=== PATIENT | female | born 1950 | race Two or more races ===

== ENCOUNTER 2018-02-08 16:54 | Emergency (ER) | payer OTHER ==
[~2018-02-08] VITALS: Ht 157.5 cm; Wt 86.2 kg
[2018-02-08] MEDS ORDERED: PAXIL30 MG (17:18)
[2018-02-08] MEDS ORDERED: WELLBUTRIN XL300 MG (17:19)
[2018-02-08] MEDS ORDERED: DALMANE30 MG (17:19)
== END 2018-02-08 18:22 | disposition home or self-care (01) ==
LOC: ER 16:54
DX: L60.0 Ingrowing nail (principal); L03.032 Cellulitis of left toe

== ENCOUNTER 2019-03-28 15:44 | Emergency (ER) | payer OTHER ==
[~2019-03-28] VITALS: Ht 160 cm; Wt 93.0 kg
[~2019-03-28 15:44] MED LIST: DALMANE30 MG; PAXIL30 MG; WELLBUTRIN XL300 MG
== END 2019-03-28 23:20 | disposition home or self-care (01) ==
LOC: ER 15:44
DX: K59.09 Other constipation (principal)

== ENCOUNTER → 2022-07-26 | Outpatient (CLI) | payer OTHER | END | disposition home or self-care (01) | LOC: TOM 08:28 | DX: K62.5 Hemorrhage of anus and rectum (principal); R19.4 Change in bowel habit ==

== ENCOUNTER 2024-12-28 07:00 | Inpatient (IN) | payer OTHER ==
[~2024-12-28] VITALS: Ht 157.5 cm; Wt 85.3 kg
[~2024-12-28 07:00] MED LIST changes: -PAXIL30 MG; +PAXIL30 MG PO
[2024-12-28] MEDS ORDERED: SEROQUEL300 MG PO (07:59)
[2024-12-28] MEDS ORDERED: SYNTHROID100 MCG PO (07:59)
[2024-12-28] MEDS ORDERED: LIPITOR40 MG PO (08:00)
[2024-12-28] MEDS ORDERED: BISOPROLOL-HCT1 EACH PO (08:00)
[2024-12-28] MEDS ORDERED: PROTONIX20 MG PO (08:00)
[2024-12-28 08:31] VITALS: BP 130/82
[2024-12-28 08:47] LABS: HEMATOCRIT 38.1 % (36.0-45.00); HEMOGLOBIN 12.6 g/dL (12.0-15.00); MEAN CELL VOLUME 93.5 fL (80.00-100.00); MEAN CORPUSCULAR HEMOGLOBIN 30.9 pg (27.00-32.0); PLATELET COUNT 355 K/uL (150-450); RED BLOOD COUNT 4.08 M/uL (4.00-6.00); RED CELL DISTRIBUTION WIDTH 14.3 % (11.5-14.5)
[2024-12-28 08:58] LABS: URINE APPEARANCE Clear; URINE BILIRRUBIN Negative (NEGATIVE); URINE BLOOD Negative; URINE COLOR Yellow; URINE GLUCOSE Negative (NEGATIVE); URINE KETONE Negative (NEGATIVE); URINE LEUKOCYTE Moderate; URINE NITRATE Negative; URINE PROTEIN Negative (NEGATIVE); URINE UROBILINOGEN 0.2 E.U./dl
[2024-12-28 09:03] LABS: URINE BACTERIA 140.7 uL (0.0-1933); URINE EPITHELIAL CELLS 20.5 uL (0.0-38.8); URINE WBC 220.7 uL (0.0-23.2)
[2024-12-28 09:11] LABS: URINE CAST 0.14 uL (0.0-1.40)
[2024-12-28 09:12] LABS: INR 0.99; PARTIAL THROMBOPLASTIN TIME 32.2 SECONDS (22.0-34.0); PROTHROMBIN TIME 10.8 SECONDS (9.0-11.5)
[2024-12-28 09:50] LABS: ALBUMIN 3.7 gm/dL (3.4-5.0); BILIRUBIN TOTAL 0.28 mg/dL (0.3-1.2); CALCIUM 9.3 mg/dL (8.5-10.1); CREATININE SERUM 1.25 mg/dL (0.55-1.02); GFR 42.01; GLOBULINA 3.5 G/DL (2.4-3.5); POTASSIUM 4.39 mEq/L (3.5-5.1); TOTAL PROTEIN 7.2 gm/dL (6.4-8.2)
[2025-01-05] MEDS ORDERED: KETOROLAC TROMETHAMINE 60 MG VIAL IM ONE (06:38)
[2025-01-05] MEDS ORDERED: CEFAZOLIN SODIUM 1,000 MG VIAL ONE (06:39)
[2025-01-05] MEDS ORDERED: TRANEXAMIC ACID 100MG/1ML (1000MG) AMPUL IV ONE (06:39)
[2025-01-05] MEDS ORDERED: VANCOMYCIN HCL 1,000 MG VIAL ONE (06:39)
[2025-01-05] MEDS ORDERED: MORPHINE SULFATE 4 MG/ML VIAL IV ONE (07:45)
[2025-01-05] MEDS ORDERED: OxyCODONE HCL/APAP UD (PERCOCET) PO PRN (09:15)
[2025-01-05] MEDS ORDERED: ONDANSETRON HCL 2 MG/ML VIAL IV PRN (09:15)
[2025-01-05 11:00] VITALS: BP 132/81
[2025-01-05] MEDS ORDERED: CEFAZOLIN SODIUM 1,000 MG VIAL IV SCH (12:00)
[2025-01-05] MEDS ORDERED: MORPHINE SULFATE 4 MG/ML CARTRIDGE IV SCH (12:00)
[2025-01-05 15:54] VITALS: BP 134/74
[2025-01-05 20:00] VITALS: BP 110/58
[2025-01-05] MEDS ORDERED: GABAPENTIN 100 MG CAPSULE PO SCH (21:00)
[2025-01-05] MEDS ORDERED: ORPHENADRINE CITRATE 100 MG TABLET PO SCH (21:00)
[2025-01-06 01:03] LABS: HEMATOCRIT 32.8 % (36.0-45.00); HEMOGLOBIN 11.5 g/dL (12.0-15.00); MEAN CORPUSCULAR HEMOGLOBIN 32.4 pg (27.00-32.0); MEAN CORPUSCULAR HGB CONC 35.2 g/dl (32.0-36.0); PLATELET COUNT 284 K/uL (150-450); RED BLOOD COUNT 3.56 M/uL (4.00-6.00); RED CELL DISTRIBUTION WIDTH 14.1 % (11.5-14.5)
[2025-01-06 01:33] VITALS: BP 136/65
[2025-01-06 08:42] VITALS: BP 114/50
[2025-01-06] MEDS ORDERED: RIVAROXABAN 10 MG TAB PO SCH (09:00)
[2025-01-06] MEDS ORDERED: BUPROPION HCL 150 MG TABLET.SA PO SCH (13:23)
[2025-01-06] MEDS ORDERED: SOD FERRIC GLUC COMPLX/SUCROSE 62.5 MG/5 ML AMPUL IV SCH (13:24)
[2025-01-06] MEDS ORDERED: Cyanocobalamin/Mecobalamin 1 TAB.SL SL SCH (13:24)
[2025-01-06 16:52] VITALS: BP 143/55
[2025-01-06] MEDS ORDERED: VITAMIN B COMPLEX 1 EACH PO SCH (17:00)
[2025-01-06] MEDS ORDERED: ATORVASTATIN CALCIUM 40 MG TABLET PO SCH (17:00)
[2025-01-06] MEDS ORDERED: QUETIAPINE FUMARATE 100 MG TABLET PO SCH (21:00)
[2025-01-07 00:18] VITALS: BP 99/56
[2025-01-07 01:41] LABS: HEMATOCRIT 30.4 % (36.0-45.00); MEAN CELL VOLUME 92.4 fL (80.00-100.00); MEAN CORPUSCULAR HEMOGLOBIN 32.5 pg (27.00-32.0); MEAN CORPUSCULAR HGB CONC 35.2 g/dl (32.0-36.0); PLATELET COUNT 242 K/uL (150-450); RED BLOOD COUNT 3.29 M/uL (4.00-6.00); RED CELL DISTRIBUTION WIDTH 13.9 % (11.5-14.5)
[2025-01-07 01:45] LABS: HEMOGLOBIN 10.7 g/dL (12.0-15.00)
[2025-01-07] MEDS ORDERED: LEVOTHYROXINE SODIUM 100 MCG TABLET PO SCH (06:00)
[2025-01-07 08:13] VITALS: BP 117/70
[2025-01-07] MEDS ORDERED: PAROXETINE HCL PO SCH (09:00)
[2025-01-07] MEDS ORDERED: PAROXETINE HCL 10 MG TABLET PO SCH (09:00)
[2025-01-07] MEDS ORDERED: GABAPENTIN100 MG PO (10:57)
[2025-01-07] MEDS ORDERED: NORFLEX100MG PO (10:57)
[2025-01-07] MEDS ORDERED: XARELTO10 MG PO (10:57)
[2025-01-07] MEDS ORDERED: OXYC1TAB9 PO (10:58)
== END 2025-01-07 14:54 | disposition home or self-care (01) | DRG 470 ==
LOC: O/R 01-05 05:30 → OB/GYN 01-05 05:30 → SURH 01-05 07:00 → OB/GYN 01-05 11:08
PROVIDERS: ADMIT Orthopaedic Surgery; ATTEND Orthopaedic Surgery
PROC: 0QUD07Z Supplement Right Patella with Autologous Tissue Substitute, Open Approach (ICD-10-PCS; 2025-01-05)
PROC: 0SRC0JZ Replacement of Right Knee Joint with Synthetic Substitute, Open Approach (ICD-10-PCS; principal; 2025-01-05 10:00)
DX: M17.11 Unilateral primary osteoarthritis, right knee (principal); D62 Acute posthemorrhagic anemia; M85.661 Other cyst of bone, right lower leg; E03.9 Hypothyroidism, unspecified